=== PATIENT | female | born 1985 ===

== ENCOUNTER 2023-12-30 13:39 | Outpatient (CLI) | payer BC, SELFPAY ==
--- NOTE | 2024-02-11 12:12 | W.PM.SLEEP ---
Sleep Study Details Details Interpreting Provider: Leonel Date of Sleep Study: 12/30/23 Sleep Study Details: STUDY TYPE:? Home unattended ? BMI:? Not recorded ORDERING PROVIDER:? Leonel INDICATION:? Concerned about sleep apnea ? SLEEP SUMMARY:? 584 minutes monitored RESPIRATORY SUMMARY:? AHI 2.6 Low oxygen 89 Snoring 90.5% PERIODIC LIMB MOVEMENTS OF SLEEP:? Not recorded CARDIAC:? 45-92, mean 66.4 beats per minute IMPRESSION:? This study is not demonstrate clinically significant obstructive sleep apnea. It does demonstrate primary snoring. RECOMMENDATION: If sleep disorder strongly suspected recommend an in-lab study.
== END 2023-12-30 13:40 | disposition home or self-care (01) ==
LOC: SLEEP 13:40
PROVIDERS: PCP Family Medicine; Visit Provider Otolaryngology
DX: R06.83 Snoring (principal); G47.10 Hypersomnia, unspecified
CPT/HCPCS: 95806